=== PATIENT | female | born 1975 | race Caucasian/White ===

== ENCOUNTER 2023-06-25 08:18 | Outpatient (AMB) | payer OTHER, SELFPAY ==
--- NOTE | 2023-06-25 08:28 | MHC.PC.OV ---
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: No Allergies No Known Allergies Allergy (Verified 06/25/23 08:46) Medication List - Last Reconciled 06/25/23 by RODO Stoner buprenorphine-naloxone 2-0.5 mg (Suboxone) 1 film buccal DAILY gabapentin 300 mg PO TID melatonin mg PO BEDTIME prazosin 5 mg PO BEDTIME quetiapine 100 mg PO BID quetiapine 200 mg PO BEDTIME Tobacco use date assessed: 06/25/23 Dental Screening Dental Screen Date: 06/25/23 Did you have a dental visit in the last 12 months?: Yes Did you have a dental problem in the last 6 months where you did not have access to dental care?: No Was dental information given to patient?: Patient has dentist HPI 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 No PCP in the past. Medical history significant for PTSD, bipolar 2 disorder, anxiety, depression. Mental health conditions are followed by Psychiatry who prescribes mental health medications. Also history of substance use-on Suboxone followed by [facility] - history of heroin use, clean for 2 years, reports history of MRSA infection in her hips and spine, also was told-she has heart valve problem and she will need to have heart surgery in future. Patient reports shortness of breath on exertion for long time now, also reports intermittent left upper quadrant pain under ribs. Denies shortness of breath or chest pain in the office today. Patient also reports that she is on fluoxetine, does not remember the dose. She lives in [place] in a sober house. [facility] Medical History Hepatitis C Frostbite Surgical History Previous back surgery History of hip surgery Family History Mother HIV (human immunodeficiency virus infection) Father Alcoholic Social History Housing: House Housing Other:: sober house Patient Tobacco Use Status: Current everyday Tobacco user service: No Current occupational status: unemployed Cognitive needs: No Hearing needs: No Vision needs: No Questionnaire PHQ-9 Over the last 2 weeks, how often have you been bothered by any of the following problems? 1. Little interest or pleasure in doing things: several days 2. Feeling down, depressed, or hopeless: several days 3. Trouble falling or staying asleep, or sleeping too much: not at all 4. Feeling tired or having little energy: not at all 5. Poor appetite or overeating: not at all 6. Feeling bad about yourself - or that you are a failure or have let yourself or your family down: not at all 7. Trouble concentrating on things, such as reading the newspaper or watching television: not at all 8. Moving or speaking so slowly that other people could have noticed. Or the opposite - being so fidgety or restless that you have been moving around a lot more than usual: not at all 9. Thoughts that you would be better off or of hurting yourself in some way: not at all Total score: 2 Depression Screening Interpretation: Positive Depression Screening Follow-up: Existing condition Depression Screening Done: Yes 35657 - PHQ-9 Billing: Yes Source: Developed by Drs. Michele Tello, Dorina Razo, Floyd Soler and colleagues, with an educational sagar from [employer] AUDIT C Alcohol Use Questionnaire (AUDIT-C) 1. How often do you have a drink containing alcohol?: Never 3. How often do you have six or more drinks on one occasion?: Never Total Score: 0 Score Reviewed/Action Taken: No KELY-7 AMB Questionnaire KELY-7 Date KELY - 7 assessed: 06/25/23 Feeling nervous, anxious, or on edge: 1 = Several days Not being able to stop or control worryin = Not at all Worrying too much about different things: 0 = Not at all Trouble relaxin = Not at all Being so restless that it is hard to sit still: 0 = Not at all Becoming easily annoyed or irritable: 0 = Not at all Feeling afraid as if something awful might happen: 0 = Not at all Total KELY-7 score (0-4 normal; 5-9 mild; 10-14 moderate; 15-21 severe): 1 Source: Developed by Drs. Michele Tello, Dorina Raoz, Floyd Soler and colleagues, with an educational sagar from [employer] KELY-7 Assessment Billing KELY-7 Assessment Tool: KELY-7 Assessment 89225 Review of Systems Const Denies body aches, Denies chills, Denies fever(s) and Denies headache(s) ENT Denies dizziness, Denies otalgia, Denies headache(s), Denies nasal discharge, Denies sinus pain and Denies sore throat Card Denies chest pain, Denies edema, Denies lightheadedness, Denies dyspnea and Reports dyspnea on exertion Resp Denies cough, Denies dyspnea, Reports dyspnea on exertion and Denies wheezing GI Reports abdominal pain (Intermittent, under left ribcage), Denies constipation, Denies diarrhea, Denies nausea and Denies vomiting Denies dysuria Musc Denies myalgias Skin/Breast Denies rash Neuro Denies dizziness and Denies headache(s) Aller/Immun Denies wheezing Physical exam (Primary Care) Vital Signs: Last Vital Signs Pulse 89 06/25/23 08:29 BP 100/66 06/25/23 08:29 Pulse Ox 97 06/25/23 08:29 Oxygen Delivery Method Room Air 06/25/23 08:29 BMI result Body Mass Index 33.3 Tobacco/Smoking Status: Tobacco use Status Tobacco use date assessed 06/25/23 06/25/23 08:39 Patient Tobacco Use Status Current everyday Tobacco 06/25/23 08:39 PHQ-9: PHQ-9 Score PHQ-9: Total score 2 06/25/23 08:39 Depression Screening Interpretation: Positive Depression Screening Follow-up: Existing condition Const General: cooperative and no acute distress Orientation/consciousness: patient oriented x3 HENMT Head: Yes normocephalic and Yes atraumatic Ears: TM's normal bilaterally Face and sinus: Yes sinuses nontender Mouth: oropharynx normal and moist mucous membranes Throat: Yes posterior oropharynx normal Eyes General: appearance normal, both eyes and all related structures Pupils: Equal, round and reactive pupils present EOM: EOMs intact bilaterally Neck Neck: Yes normal visual inspection, Yes full ROM and Yes no lymphadenopathy Thyroid: Thyroid normal Resp Effort & Inspection: normal respiratory effort and able to speak in complete sentences Auscultation: clear to auscultation bilaterally, no crackles, no rales, no rhonchi and no wheezes Cardio Rate: regular rate Rhythm: regular rhythm Heart sounds: S1 normal heart sound present, S2 normal heart sound present and Murmur heart sound present systolic GI Palpation (GI): Soft to palpation, not firm, nontender, no guarding, not rigid and no hepatosplenomegaly Auscultation: normal bowel sounds General: No CVA tenderness Back/Spine/Pelvis Back: No CVA tenderness Skin General skin exam: no rashes or lesions noted Neuro General: patient oriented x3 Cranial nerves: Yes Equal, round and reactive pupils present Gait exam (Neuro): Normal gait present Extrem General: Yes full ROM and No edema Assessment and Plan Assessment & Plan (1) SOBOE (shortness of breath on exertion): Code(s): R06.02 - Shortness of breath Plan: Start albuterol inhaler p.r.n. Will obtain echocardiogram (2) Heart murmur: Code(s): R01.1 - Cardiac murmur, unspecified Plan: Will obtain echocardiogram (3) Depression: Code(s): F32.A - Depression, unspecified Qualifiers: Depression Type: other depression Qualified Code(s): F32.89 - Other specified depressive episodes Plan: Continue current medications as prescribed by Psychiatry Dr. Theodore (4) Anxiety: Code(s): F41.9 - Anxiety disorder, unspecified Plan: Same as above (5) History of substance use: Code(s): Z87.898 - Personal history of other specified conditions Plan: On Suboxone prescribed by Dr. Spivey from [facility] (6) Bipolar II disorder: Code(s): F31.81 - Bipolar II disorder Plan: Same as above (7) PTSD (post-traumatic stress disorder): Code(s): F43.10 - Post-traumatic stress disorder, unspecified Plan: Same as above (8) Encounter to establish care: Code(s): Z76.89 - Persons encountering health services in other specified circumstances (9) Smoker: Code(s): F17.200 - Nicotine dependence, unspecified, uncomplicated Plan: Patient smokes 5 cigarettes per day and vape Encouraged smoking cessation Plan Follow-up in 2 months for physical exam and labs Orders: Orders Comprehensive Victor. Panel Fast Today Z76.89 - Persons encountering health services in other specified circumstances Complete Blood Count Auto Diff Today Z76.89 - Persons encountering health services in other specified circumstances Vitamin D 25-OH Total Today Z76.89 - Persons encountering health services in other specified circumstances Vitamin B12 and Folate Today Z76.89 - Persons encountering health services in other specified circumstances TSH reflex Free T4 Today Z76.89 - Persons encountering health services in other specified circumstances Lipid Panel Today Z76.89 - Persons encountering health services in other specified circumstances B Type Natriuretic Peptide Today R01.1 - Cardiac murmur, unspecified CA echo transthoracic complete Today R01.1 - Cardiac murmur, unspecified Medications: New albuterol sulfate 90 mcg/actuation (Ventolin HFA) 2 puffs inhalation Q4-6H PRN 8.5 grams 0RF shortness of breath or wheezing R06.02 - Shortness of breath Coding Level of Care Code New Pt Level 4 (94309) Diagnoses SOBOE (shortness of breath on exertion) R06.02 Heart murmur R01.1 Other depression F32.89 Depression Type: other depression Anxiety F41.9 History of substance use Z87.898 Bipolar II disorder F31.81 PTSD (post-traumatic stress disorder) F43.10 Encounter to establish care Z76.89 Smoker F17.200 Additional Codes KELY-7 Assessment Billing - KELY-7 Assessment Tool: KELY-7 Assessment [id number] ([id number])
[2023-06-25 08:29] VITALS: BP 100/66; PULSE 89; O2SAT 97; BMI 33.3
== END 2023-06-25 09:06 | disposition home or self-care (01) ==
PROVIDERS: PCP Nurse Practitioner Family; Visit Provider Nurse Practitioner Family
DX: R06.02 Shortness of breath (principal); F31.81 Bipolar II disorder; R01.1 Cardiac murmur, unspecified; F41.9 Anxiety disorder, unspecified; Z87.898 Personal history of other specified conditions; F43.10 Post-traumatic stress disorder, unspecified; Z76.89 Persons encountering health services in other specified circumstances; F17.210 Nicotine dependence, cigarettes, uncomplicated
CPT/HCPCS: 99204

== ENCOUNTER → 2023-08-08 13:55 | Outpatient (REF) | payer OTHER, SELFPAY ==
--- NOTE | 2023-08-08 13:58 | CA_ITS ---
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 There is normal left ventricular wall thickness. The left ventricular systolic function is normal. The visually estimated ejection fraction is between 55-60%. - Severely increased right ventricular cavity size. There is borderline right ventricular systolic function. - The right atrium is severely dilated. - There is tear in the tricuspid valve leaflet from previous endocarditis. There is severe tricuspid valve regurgitation. - The inferior vena cava is dilated and collapses greater than 50% with inspiration. Hepatic vein flow indicates systolic flow reversal. Findings Left Ventricle Decreased left ventricular cavity size. There is normal left ventricular wall thickness. The left ventricular systolic function is normal. The visually estimated ejection fraction is between 55-60%. There is no evidence of regional wall motion abnormalities. Diastolic function is normal for age. Right Ventricle Severely increased right ventricular cavity size. There is borderline right ventricular systolic function. Atria The left atrium is normal in size. The right atrium is severely dilated. Aortic Valve There is a normal trileaflet aortic valve. There is no aortic valve stenosis. There is no aortic valve regurgitation. Mitral Valve The mitral valve appears normal. There is no mitral valve regurgitation. There is no mitral valve stenosis. Pulmonic Valve The pulmonic valve is likely normal. Tricuspid Valve There is tear in the tricuspid valve leaflet from previous endocarditis. There is severe tricuspid valve regurgitation. Mildly elevated right atrial pressure. There is no evidence of pulmonary hypertension. Great Vessels All visible segments of the aorta are normal in size. Venous The inferior vena cava is dilated and collapses greater than 50% with inspiration. Hepatic vein flow indicates systolic flow reversal. Pericardium/Pleural There is no evidence of pericardial effusion. Prior Study Comparison No prior study available for comparison. Measurements 2D Linear Measurements IVSd: 1.20 0.6-0.9/0.6-1.0 cm LVIDd: 3.59 3.9-5.3/4.2-5.9 cm LVIDd Index: 1.88 2.4-3.2/2.2-3.1 cm/m2 LVIDs: 2.34 2.0-3.6 cm LVPWd: 0.98 0.7-1.1 cm LA Diam: 3.50 2.7-3.8/3.0-4.0 cm LAIDs Index: 1.83 1.5-2.3 cm/m2 LV Mass: 151.25 67-162/88-224 g LV Mass Index: 79.19 43-95/49-115 g/m2 LVOT Diam: 2.20 3.0+(-)1.3 cm 2D Systolic Function EF 4C: 47.90 >55% EF 2C: 49.70 >55% EF BiP: 49.40 >55% Mitral Valve MV Pk E: 0.65 MV PK A: 0.84 MV Decel Time: 172.00 E/A: 0.80 E'Lateral: 8.81 E'Medial: 6.85 E/E' Med: 9.50 E/E' Lat: 7.40 PHT: 50.00 MVA PHT: 4.40 Decel [place]: 3.79 Aortic Valve AoV Pk Edwar: 1.09 AoV Mn Edwar: 0.72 AoV VTI: 0.19 AoV Pk Grad: 5.00 Aov Mn Grad: 2.00 PARISA Cont.VTI: 2.90 LVOT LVOT Pk Edwar: 0.80 LVOT Mn Edwar: 0.55 LVOT VTI: 0.14 LVOT Pk Grad: 3.00 LVOT Mn Grad: 1.00 LVOT Diam: 2.20 LVOT Area: 3.80 Diastolic Function MV Pk E: 0.65 MV Pk A: 0.84 E/A: 0.80 E'Medial: 6.85 E/E' Med: 9.50 E' Laterial: 8.81 E/E' Lat: 7.40 Right Ventricle TAPSE (mm): 28.60 TVS' Edwar: 16.30 Tricuspid Valve TR Pk Edwar: 2.62 TR Pk Grad: 27.00 RA Press: 8.00 RVSP: 35.00 Great Vessels Aorta Sinus of Valsalva: 2.88 2.0-3.[address] [place]: 2.19 1.7-3.4 cm Ao Asc: 2.60 2.1-3.4 cm Updated in Other Vendor System with Status of Final Jim Lang MD electronically signed on 08/08/2023 9:58:18 PM with status of Final
== END ==
LOC: HO.CARD 13:55
PROVIDERS: PCP Nurse Practitioner Family; Visit Provider Nurse Practitioner Family
DX: R01.1 Cardiac murmur, unspecified (principal)
CPT/HCPCS: 93306

== ENCOUNTER → 2023-08-08 13:58 | Outpatient (BNV) | payer OTHER, SELFPAY | PROVIDERS: PCP Nurse Practitioner Family; Visit Provider Internal Medicine Cardiovascular Disease | DX: I36.1 Nonrheumatic tricuspid (valve) insufficiency (principal) | CPT/HCPCS: 93306 ==

== ENCOUNTER 2023-08-11 14:41 | Outpatient (AMB) | payer OTHER, SELFPAY ==
[2023-08-11 14:43] VITALS: BP 126/58; PULSE 88; BMI 33.8
--- NOTE | 2023-08-11 14:43 | A.OFFVIS_ITS ---
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/ Severe tricusid regurg pt its having shortness of breath Supervisor Rework Required: No Accompanied by: Self / Same As Patient Allergies No Known Allergies Allergy (Verified 06/25/23 08:46) Medication List - Last Reconciled 08/11/23 by Jim Lang MD albuterol sulfate 90 mcg/actuation (Ventolin HFA) 2 puffs inhalation Q4-6H PRN buprenorphine-naloxone 2-0.5 mg (Suboxone) 1 film buccal DAILY cholecalciferol (vitamin D3) 50 mcg PO DAILY gabapentin 300 mg PO TID levothyroxine 25 mcg PO DAILY melatonin mg PO BEDTIME nicotine 1 patch topical DAILY prazosin 5 mg PO BEDTIME quetiapine 100 mg PO BID quetiapine 200 mg PO BEDTIME HPI HPI Comments History of Present Illness Details 48-year-old female who is here for 1st o ffice visit. She has background history of endocarditis and came for a routine echocardiogram through her primary care physician. I read her echo which showed severe RV and RA dilation and torrential tricuspid valve regurgitation. She was advised to come in for an urgent visit with us. She has background of IV drug use and endocarditis. She said she was sick 3-4 years ago and had multiple infections including osteomyelitis as well as pneumonia. She was told that the valve has been affected by the bacteremia and she may need valve replacement the future. She was last admitted at [facility] in 2020. She is saying that over the last 2 and half years she has been clean and not use any drugs. She has been noticing some fatigue and shortness of breath. Occasionally gets sharp central chest pains which appeared quite atypical. Echocardiogram reviewed and we discussed in detail about the findings including severe tricuspid valve regurgitation with severe RV dilation and mild dysfunction of the right ventricle. [facility] Medical History (Updated 08/11/23 @ 15:20 by Jim Lang MD) Severe tricuspid regurgitation Hepatitis C Frostbite Surgical History Previous back surgery History of hip surgery Family History Mother HIV (human immunodeficiency virus infection) Father Alcoholic Social History Housing: House Housing Other:: sober house Patient Tobacco Use Status: Current everyday Tobacco user service: No Current occupational status: unemployed Cognitive needs: No Hearing needs: No Vision needs: No Review of Systems Const Reports chills, Reports fatigue, Reports fever(s), Reports frequent falls, Reports weakness, Reports weight gain and Reports weight loss ENT Reports dizziness Card Reports chest pain, Reports leg edema, Reports lightheadedness, Reports palpitations, Reports dyspnea, Reports dyspnea on exertion and Reports orthopnea Resp Reports cough, Reports dyspnea and Reports dyspnea on exertion GI Reports bloating and Reports change in bowel habits Musc Reports muscle weakness, Reports numbness and Reports tingling Neuro Reports dizziness, Reports frequent falls, Reports numbness, Reports tingling and Reports weakness Endo Reports fatigue and Reports palpitations Physical Exam Vital Signs: Last Vital Signs Pulse 88 08/11/23 14:43 BP 126/58 L 08/11/23 14:43 BMI result Body Mass Index 33.8 GENERAL APPEARANCE: in no acute distress, pleasant. NECK: no carotid bruit, no jugular venous distention. SKIN: no suspicious lesions, warm and dry. HEART: Systolic murmur left sternal border, regular rate and rhythm. LUNGS: clear to auscultation bilaterally. ABDOMEN: soft, nontender. EXTREMITIES: no edema. PERIPHERAL PULSES: equal. NEUROLOGIC: No gross deficits, AAO X 3 Office Procedures EKG Details: Sinus rhythm 88 beats per minute, right axis deviation, anterolateral infarct, QTC 430 milliseconds. [id number], Complete Assessment & Plan Assessment & Plan (1) Severe tricuspid regurgitation: Code(s): I07.1 - Rheumatic tricuspid insufficiency (2) Right ventricular dysfunction: Code(s): I51.9 - Heart disease, unspecified Plan Pleasant 48-year-old female who is here for 1st office visit. 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 She was sick with multiple infections in different places including trying meds, vertebrae and lung. She had a prolonged course and eventually improved and was in drug rehab and stop using IV drugs. She has not used for the last 2 and half years. Her echocardiogram is showing severe tricuspid valve regurgitation and RV dilation. RV function is mildly reduced. Clearly her symptoms are linked with severe tricuspid valve regurgitation. To my eye, the valve appears damage and she will need valve replacement. I had a discussion with cardiothoracic surgeon Dr. Rincon at [facility] and he has kindly agreed to see her soon. I will upload the echocardiogram on Nely so he can review the echocardiography too. Depending on his assessment I will arrange a left and right heart catheteriza tion. We will see her back in few months. Thank you for allowing me to participate in the care of your patient. Please feel free to contact me if you have any questions. Orders: Referrals Cardiac Surgery Referral I07.1 - Rheumatic tricuspid insufficiency Coding Level of Care Code New Pt Level 4 (94907) Diagnoses Severe tricuspid regurgitation I07.1 Right ventricular dysfunction I51.9 CPT Codes EKG - CPT: 21977-[id number], Complete ([id number])
== END 2023-08-11 15:13 | disposition home or self-care (01) ==
PROVIDERS: PCP Nurse Practitioner Family; Visit Provider Internal Medicine Cardiovascular Disease
DX: I07.1 Rheumatic tricuspid insufficiency (principal); I51.9 Heart disease, unspecified
CPT/HCPCS: 93010; 99204

== ENCOUNTER → 2023-08-11 14:41 | Outpatient (BNVA) | payer OTHER, SELFPAY | PROVIDERS: PCP Nurse Practitioner Family; Visit Provider Internal Medicine Cardiovascular Disease | DX: I07.1 Rheumatic tricuspid insufficiency (principal); I51.9 Heart disease, unspecified | CPT/HCPCS: 93005; 99202 ==

== ENCOUNTER → 2023-09-09 23:59 | Outpatient (BNV) | payer OTHER, SELFPAY | PROVIDERS: PCP Nurse Practitioner Family; Visit Provider Internal Medicine Cardiovascular Disease | DX: I36.1 Nonrheumatic tricuspid (valve) insufficiency (principal) | CPT/HCPCS: 93460; 99152 ==

== ENCOUNTER 2023-10-16 13:43 | Outpatient (AMB) | payer OTHER, SELFPAY ==
[2023-10-16 13:45] VITALS: BP 104/70; PULSE 84; O2SAT 95; BMI 33.3
--- NOTE | 2023-10-16 13:45 | A.OFFPC_ITS ---
Vital Signs 10/16/23 13:45 Height 5 ft 4 in Weight 194 lb BMI 33.3 BP 104/70 Blood Pressure Location Lt brachial Position Sitting Pulse 84 Pulse Source Pulse Oximeter Pulse Oximetry (%) 95 Oxygen Delivery Method Room Air Intake Visit Reasons: Annual Exam Intake Note: Patient is here today for a physical. Communication Signals Intelligence Required: No Allergies No Known Allergies Allergy (Verified 10/16/23 13:46) Medication List - Last Reconciled 10/16/23 by Efern Malone MD albuterol sulfate 90 mcg/actuation (Ventolin HFA) 2 puffs inhalation Q4-6H PRN buprenorphine-naloxone 2-0.5 mg (Suboxone) 1 film buccal DAILY cholecalciferol (vitamin D3) 50 mcg PO DAILY gabapentin 300 mg PO TID levothyroxine 25 mcg PO DAILY melatonin mg PO BEDTIME nicotine 1 patch topical DAILY prazosin 5 mg PO BEDTIME quetiapine 100 mg PO BID quetiapine 200 mg PO BEDTIME Tobacco use date assessed: 10/16/23 Dental Screening Dental Screen Date: 10/16/23 Did you have a dental visit in the last 12 months?: No Did you have a dental problem in the last 6 months where you did not have access to dental care?: No HPI Annual Exam HPI Details 48-year-old obese female smoker with a h istory of bipolar disorder substance abuse with severe tricuspid regurgitation and right ventricular dysfunction 1st time being seen for physical exam. Review of the notes September 2023 multiple bouts of tricuspid valve endocarditis pneumonia treated hepatitis- C had a typical chest pain having dilated RV with decreased RV systolic function with severe tricuspid valve regurgitation with a tear in the leaflets so patient underwent 09/22/2023 tricuspid valve replacement with 33 epic valve [facility] permanent left ventricular epicardial pacing lead placement by Dr. Rincon status post tricuspid valve replacement on amiodarone for AFib prophylaxis aspirin 81 mg , Dr. Suazo [facility] Medical History (Updated 10/16/23 @ 14:58 by Efren Malone MD) Right ventricular dysfunction Smoker SOBOE (shortness of breath on exertion) Heart murmur Depression Severe tricuspid regurgitation Hepatitis C Frostbite Surgical History (Updated 10/16/23 @ 14:58 by Efren Malone MD) Previous back surgery History of hip surgery Family History (Updated 10/16/23 @ 14:59 by Efren Malone MD) Mother HIV (human immunodeficiency virus infection) Father Alcoholic Sister Leukemia Social History (Updated 10/16/23 @ 14:59 by Efren Malone MD) Housing: House Housing Other:: sober house Alcohol intake: never Patient Tobacco Use Status: Current everyday Tobacco user Years Smoked: 2 cigarettes a day service: No Current occupational status: unemployed Cognitive needs: No Hearing needs: No Vision needs: No Questionnaire PHQ-9 Over the last 2 weeks, how often have you been bothered by any of the following problems? 1. Little interest or pleasure in doing things: several days 2. Feeling down, depressed, or hopeless: several days 3. Trouble falling or staying asleep, or sleeping too much: not at all 4. Feeling tired or having little energy: not at all 5. Poor appetite or overeating: not at all 6. Feeling bad about yourself - or that you are a failure or have let yourself or your family down: not at all 7. Trouble concentrating on things, such as reading the newspaper or watching television: not at all 8. Moving or speaking so slowly that other people could have noticed. Or the opposite - being so fidgety or restless that you have been moving around a lot more than usual: not at all 9. Thoughts that you would be better off or of hurting yourself in some way: not at all Total score: 2 Depression Screening Interpretation: Positive Depression Screening Follow-up: Existing condition and In treatment Depression Screening Done: Yes Source: Developed by Drs. Michele Tello, Dorina Razo, Floyd Soler and colleagues, with an educational sagar from [employer]. Thrive Questionnaire Date Thrive assessed: 10/16/23 I am a: Patient What is your living situation today?: I have a steady place to live Within the past 12 months, did the food you bought not last and you didn't have the money to get more?: Never true Within the past 12 months, did you worry whether your food would run out before you got money to buy more?: Never true Do you have trouble paying for medicines?: No Do you have trouble getting transportation to medical appointments?: No Do you have trouble paying your heating and electricity bill?: No Do you have trouble taking care of your child, family member or friend?: No Do you have trouble with day-to-day activities such as bathing, preparing meals, shopping, managing finances, etc.?: No Are you currently unemployed and looking for a job?: No Are you interested in more education?: No Please select the resources that you would like help with: None THRIVE Score: 0 AUDIT C Alcohol Use Questionnaire (AUDIT-C) 1. How often do you have a drink containing alcohol?: Never 3. How often do you have six or more drinks on one occasion?: Never Total Score: 0 Score Reviewed/Action Taken: No KELY-7 AMB Questionnaire KELY-7 Date KELY - 7 assessed: 10/16/23 Feeling nervous, anxious, or on edge: 1 = Several days Not being able to stop or control worryin = Several days Worrying too much about different things: 0 = Not at all Trouble relaxin = Not at all Being so restless that it is hard to sit still: 0 = Not at all Becoming easily annoyed or irritable: 0 = Not at all Feeling afraid as if something awful might happen: 0 = Not at all Total KELY-7 score (0-4 normal; 5-9 mild; 10-14 moderate; 15-21 severe): 2 Source: Developed by Drs. Michele Tello, Dorina Razo, Floyd Soler and colleagues, with an educational sagar from [employer]. Physical exam (Primary Care) Vital Signs: Last Vital Signs Pulse 84 10/16/23 13:45 BP 104/70 10/16/23 13:45 Pulse Ox 95 10/16/23 13:45 Oxygen Delivery Method Room Air 10/16/23 13:45 BMI result Body Mass Index 33.3 Tobacco/Smoking Status: Tobacco use Status Tobacco use date assessed 10/16/23 10/16/23 13:47 Patient Tobacco Use Status Current everyday Tobacco 10/16/23 13:47 PHQ-9: PHQ-9 Score PHQ-9: Total score 2 10/16/23 14:21 Depression Screening Interpretation: Positive Depression Screening Follow-up: Existing condition and In treatment Thrive Assessment: Date of Thrive Assessment Date Thrive assessed 10/16/23 10/16/23 13:47 Const General: alert; No acute distress Eyes Conjunctivae: conjunctivae normal Resp Auscultation: clear to auscultation bilaterally Cardio Rate: regular rate Rhythm: regular rhythm GI Inspection: Yes normal to inspection Extrem General: Yes normal to inspection and No edema Assessment and Plan Assessment & Plan (1) Severe tricuspid regurgitation: Comment: Tricuspid valve surgery 09/22/2023 Code(s): I07.1 - Rheumatic tricuspid insufficiency Plan: Continue to follow up with Cardiology (2) History of endocarditis: Comment: X4 Code(s): Z86.79 - Personal history of other diseases of the circulatory system Plan: Status post tricuspid valve surgery (3) H/O tricuspid valve replacement: Comment: 09/22/2023 Code(s): Z95.2 - Presence of prosthetic heart valve Plan: Continue to follow-up with cardiology (4) Hypothyroidism: Code(s): E03.9 - Hypothyroidism, unspecified Plan: Will continue to follow-up with blood work (5) Bipolar II disorder: Comment: [facility] once a month Code(s): F31.81 - Bipolar II disorder Plan: Continue with medication presently (6) History of substance use: Code(s): Z87.898 - Personal history of other specified conditions (7) Tobacco abuse: Code(s): Z72.0 - Tobacco use (8) Encounter to establish care: Code(s): Z76.89 - Persons encountering health services in other specified circumstances Orders: Orders Comprehensive [place]. Panel Fast Today Z76.89 - Persons encountering health services in other specified circumstances Lipid Panel Today Z76.89 - Persons encountering health services in other specified circumstances TSH reflex Free T4 Today Z76.89 - Persons encountering health services in other specified circumstances Reticulocyte Count Today Z86.79 - Personal history of other diseases of the circulatory system Magnesium Today Z86.79 - Personal history of other diseases of the circulatory system B Type Natriuretic Peptide Today R01.1 - Cardiac murmur, unspecified Complete Blood Count Auto Diff Today Z76.89 - Persons encountering health services in other specified circumstances Vitamin B12 and Folate Today Z76.89 - Persons encountering health services in other specified circumstances Vitamin D 25-OH Total Today Z76.89 - Persons encountering health services in other specified circumstances IRON PROFILE Today Z86.79 - Personal history of other diseases of the circulatory system Ferritin Today Z86.79 - Personal history of other diseases of the circulatory system Coding Level of Care Code Est Pt Level 4 (04535) Diagnoses Severe tricuspid regurgitation I07.1 History of endocarditis Z86.79 H/O tricuspid valve replacement Z95.2 Hypothyroidism E03.9 Bipolar II disorder F31.81 History of substance use Z87.898 Tobacco abuse Z72.0 Encounter to establish care Z76.89
== END 2023-10-16 17:32 | disposition home or self-care (01) ==
PROVIDERS: PCP Nurse Practitioner Family; Visit Provider Internal Medicine
DX: E03.9 Hypothyroidism, unspecified (principal); F31.81 Bipolar II disorder; I07.1 Rheumatic tricuspid insufficiency; F17.210 Nicotine dependence, cigarettes, uncomplicated; Z86.79 Personal history of other diseases of the circulatory system; Z95.2 Presence of prosthetic heart valve; Z87.898 Personal history of other specified conditions; Z72.0 Tobacco use; Z76.89 Persons encountering health services in other specified circumstances
CPT/HCPCS: 99214

== ENCOUNTER 2023-10-28 13:33 | Outpatient (AMB) | payer OTHER, SELFPAY ==
[2023-10-28 14:13] VITALS: BP 114/75; PULSE 84; BMI 33.5
--- NOTE | 2023-10-28 14:13 | A.OFFVIS_ITS ---
Intake Vital Signs 10/28/23 14:13 Height 5 ft 4 in Weight 195 lb BMI 33.5 BP 114/75 Blood Pressure Location Lt brachial Position Sitting Pulse 84 Intake Visit Reasons: FU dc [facility] Intake Note: follow up after [facility] discharge Allergies No Known Allergies Allergy (Verified 10/16/23 13:46) Medication List - Last Reconciled 10/30/23 by Shannon Baumann NP albuterol sulfate 90 mcg/actuation (Ventolin HFA) 2 puffs inhalation Q4-6H PRN buprenorphine-naloxone 2-0.5 mg (Suboxone) 1 film buccal DAILY cholecalciferol (vitamin D3) 50 mcg PO DAILY furosemide 40 mg PO DAILY gabapentin 300 mg PO TID levothyroxine 25 mcg PO DAILY melatonin mg PO BEDTIME metoprolol succinate ER 50 mg PO DAILY nicotine 1 patch topical DAILY prazosin 5 mg PO BEDTIME quetiapine 100 mg PO BID quetiapine 200 mg PO BEDTIME [facility] Medical History (Updated 10/16/23 @ 14:58 by Efren Malone MD) Right ventricular dysfunction Smoker SOBOE (shortness of breath on exertion) Heart murmur Depression Severe tricuspid regurgitation Hepatitis C Frostbite Surgical History (Updated 10/30/23 @ 07:37 by Shannon Baumann NP) Previous back surgery History of hip surgery Family History (Updated 10/16/23 @ 14:59 by Efren Malone MD) Mother HIV (human immunodeficiency virus infection) Father Alcoholic Sister Leukemia Social History (Updated 10/16/23 @ 14:59 by Efren Malone MD) Housing: House Housing Other:: sober house Alcohol intake: never Patient Tobacco Use Status: Current everyday Tobacco user Years Smoked: 2 cigarettes a day service: No Current occupational status: unemployed Cognitive needs: No Hearing needs: No Vision needs: No Review of Systems Const Denies weakness ENT Denies dizziness Card Denies chest pain, Denies chest pain with activity, Denies syncope, Denies rapid heart rate, Denies pedal edema, Denies edema, Denies leg edema, Denies lightheadedness, Denies palpitations, Denies dyspnea, Denies dyspnea on exertion and Denies orthopnea Resp Denies cough, Denies dyspnea and Denies dyspnea on exertion GI Denies hematochezia and Denies change in stool character Musc Denies abnormal gait, Denies muscle cramps, Denies muscle weakness, Denies numbness, Denies radiating pain into limb and Denies tingling Neuro Denies abnormal gait, Denies dizziness, Denies syncope, Denies numbness, Denies tingling and Denies weakness Endo Denies palpitations Physical Exam Vital Signs: Last Vital Signs Pulse 84 10/28/23 14:13 BP 114/75 10/28/23 14:13 BMI result Body Mass Index 33.5 Assessment & Plan Assessment & Plan (1) H/O tricuspid valve replacement: Comment: 09/22/[address] [facility]. Code(s): Z95.2 - Presence of prosthetic heart valve Plan: Tricuspid valve replacement due to tear in leaflets with Dr. Suazo. No signs or symptoms of infection. Continue cardiac rehab. Antibiotic prophylaxis require per guidelines. Will discuss care further with Dr. Lang. (2) Tobacco abuse: Code(s): Z72.0 - Tobacco use Plan: She is down to 2 cigarettes per day. Encouraged to keep cutting back until full cessation. Coding Level of Care Code Est Pt Level 3 (51072) Diagnoses H/O tricuspid valve replacement Z95.2 Tobacco abuse Z72.0
== END 2023-10-28 14:34 | disposition home or self-care (01) ==
PROVIDERS: PCP Nurse Practitioner Family; Visit Provider Nurse Practitioner
DX: Z95.2 Presence of prosthetic heart valve (principal); Z72.0 Tobacco use
CPT/HCPCS: 99213

== ENCOUNTER → 2023-10-28 13:33 | Outpatient (BNVA) | payer OTHER, SELFPAY | PROVIDERS: PCP Nurse Practitioner Family; Visit Provider Nurse Practitioner | DX: Z95.2 Presence of prosthetic heart valve (principal); Z72.0 Tobacco use | CPT/HCPCS: 99212 ==

== ENCOUNTER → 2023-11-12 09:57 | Outpatient (REF) | payer OTHER, SELFPAY ==
--- NOTE | 2023-11-12 10:01 | HM_ITS ---
Conclusion: 1. Patient was monitored for total period of 2 days and 21 hours 2. Baseline was atrial fibrillation with average heart rate of 69 beats per minute with good rate control 3. No significant pauses noted 4. Occasional PVCs noted with total burden of 1.1% 5. Patient marked the counter 1 time without associated symptoms correlating with AFib with PVCs MTDD
== END ==
LOC: HO.CARD 09:57
PROVIDERS: PCP Nurse Practitioner Family; Visit Provider Internal Medicine Cardiovascular Disease
DX: I49.9 Cardiac arrhythmia, unspecified (principal)
CPT/HCPCS: 93242

== ENCOUNTER → 2023-11-12 10:01 | Outpatient (BNV) | payer OTHER, SELFPAY | PROVIDERS: PCP Nurse Practitioner Family; Visit Provider Internal Medicine Cardiovascular Disease | DX: I49.3 Ventricular premature depolarization (principal) | CPT/HCPCS: 93244 ==

== ENCOUNTER 2023-11-26 15:34 | Outpatient (AMB) | payer OTHER, SELFPAY ==
[2023-11-26 15:43] VITALS: BP 130/60; PULSE 89; BMI 33.6
--- NOTE | 2023-11-26 15:43 | A.OFFVIS_ITS ---
Intake Vital Signs 11/26/23 15:43 Height 5 ft 4 in Weight 195 lb 12.328 oz BMI 33.6 BP 130/60 Blood Pressure Location Lt brachial Position Sitting Pulse 89 Pulse Source Pulse Oximeter Intake Visit Reasons: 3 month follow up Intake Note: pt its here for a 3mth f/up/ pt states that she its doing fine. Top Ironer Required: No Accompanied by: Significant Other Allergies No Known Allergies Allergy (Verified 10/16/23 13:46) Medication List - Last Reconciled 11/26/23 by Jim Lang MD albuterol sulfate 90 mcg/actuation (Ventolin HFA) 2 puffs inhalation Q4-6H PRN aspirin 81 mg PO DAILY 90 days buprenorphine-naloxone 2-0.5 mg (Suboxone) 1 film buccal DAILY cholecalciferol (vitamin D3) 50 mcg PO DAILY furosemide 40 mg PO DAILY gabapentin 300 mg PO TID levothyroxine 25 mcg PO DAILY melatonin mg PO BEDTIME metoprolol succinate ER 50 mg PO DAILY nicotine 1 patch topical DAILY prazosin 5 mg PO BEDTIME quetiapine 100 mg PO BID quetiapine 200 mg PO BEDTIME HPI HPI Comments History of Present Illness Details 48-year-old female who is here for 1st o ffice visit. She has background history of endocarditis and came for a routine echocardiogram through her primary care physician. I read her echo which showed severe RV and RA dilation and torrential tricuspid valve regurgitation. She was advised to come in for an urgent visit with us. She has background of IV drug use and endocarditis. She said she was sick 3-4 years ago and had multiple infections including osteomyelitis as well as pneumonia. She was told that the valve has been affected by the bacteremia and she may need valve replacement the future. She was last admitted at [facility] in 2020. She is saying that over the last 2 and half years she has been clean and not use any drugs. She has been noticing some fatigue and shortness of breath. Occasionally gets sharp central chest pains which appeared quite atypical. Echocardiogram reviewed and we discussed in detail about the findings including severe tricuspid valve regurgitation with severe RV dilation and mild dysfunction of the right ventricle. 11/26/2023: she returns for follow-up. Loly castellanos underwent tricuspid valve repair by Dr. Suazo at [facility]. She has done significantly well since then. She has no shortness of breath during her symptoms of heart failure. She is doing cardiac rehabilitation and is progressing. [facility] Medical History (Updated 11/03/23 @ 16:16 by iJm Lang MD) Right ventricular dysfunction Smoker SOBOE (shortness of breath on exertion) Heart murmur Depression Severe tricuspid regurgitation Hepatitis C Frostbite Surgical History (Updated 11/26/23 @ 15:48 by Melany Newby MA) H/O heart surgery Previous back surgery History of hip surgery Family History (Updated 10/16/23 @ 14:59 by Efren Malone MD) Mother HIV (human immunodeficiency virus infection) Father Alcoholic Sister Leukemia Social History (Updated 10/16/23 @ 14:59 by Efren Malone MD) Housing: House Housing Other:: sober house Alcohol intake: never Patient Tobacco Use Status: Current everyday Tobacco user Years Smoked: 2 cigarettes a day service: No Current occupational status: unemployed Cognitive needs: No Hearing needs: No Vision needs: No Review of Systems Const Denies chills, Denies fatigue, Denies fever(s), Denies frequent falls, Denies weakness, Denies weight gain and Denies weight loss ENT Denies dizziness Card Denies chest pain, Denies leg edema, Denies lightheadedness, Denies palpitation s, Denies dyspnea and Denies dyspnea on exertion Resp Denies cough, Denies dyspnea and Denies dyspnea on exertion GI Denies hematochezia Musc Denies abnormal gait, Denies muscle weakness, Denies numbness, Denies radiating pain into limb and Denies tingling Neuro Denies abnormal gait, Denies dizziness, Denies frequent falls, Denies numbness, Denies tingling and Denies weakness Endo Denies fatigue and Denies palpitations Physical Exam Vital Signs: Last Vital Signs Pulse 89 11/26/23 15:43 BP 130/60 11/26/23 15:43 BMI result Body Mass Index 33.6 GENERAL APPEARANCE: in no acute distress, pleasant. NECK: no carotid bruit, no jugular venous distention. SKIN: no suspicious lesions, warm and dry. Healed midline sternotomy scar. HEART: Regular rate and rhythm. No murmur,gallop or rub ABDOMEN: soft, nontender. EXTREMITIES: no edema. PERIPHERAL PULSES: equal. NEUROLOGIC: No gross deficits, AAO X 3 Assessment & Plan Assessment & Plan (1) H/O tricuspid valve replacement: Comment: 09/22/[address] [facility]. Code(s): Z95.2 - Presence of prosthetic heart valve Plan Pleasant 48-year-old female who is here for follow-up. She was seen for RV dysfunction and severe tricuspid regurgitation secondary to endocarditis in the past. She was referred for cardiothoracic surgery and went tricuspid valve replacement. She has done significantly well with surgery and has been doing remarkably well at this point. I will check echocardiogram to assess the gradients across the tricuspid valve as baseline and assess the right ventricular function. I have advised her that she will need endocarditis prophylaxis every time she goes for dental workup. Thank you for allowing me to participate in the care of your patient. Please feel free to contact me if you have any questions. Orders: Orders CA echo transthoracic complete Today Z95.2 - Presence of prosthetic heart valve Coding Level of Care Code Est Pt Level 4 (95435) Diagnoses H/O tricuspid valve replacement Z95.2
== END 2023-11-26 16:03 | disposition home or self-care (01) ==
PROVIDERS: PCP Nurse Practitioner Family; Visit Provider Internal Medicine Cardiovascular Disease
DX: Z95.2 Presence of prosthetic heart valve (principal)
CPT/HCPCS: 99214

== ENCOUNTER → 2023-11-26 15:34 | Outpatient (BNVA) | payer OTHER, SELFPAY | PROVIDERS: PCP Nurse Practitioner Family; Visit Provider Internal Medicine Cardiovascular Disease | DX: Z95.2 Presence of prosthetic heart valve (principal) | CPT/HCPCS: 99212 ==

== ENCOUNTER 2023-12-03 10:25 | Outpatient (AMB) | payer OTHER, SELFPAY ==
--- NOTE | 2023-12-03 10:31 | AM.OFFVISNUR ---
Intake Intake Visit Reasons: ekg Allergies No Known Allergies Allergy (Verified 10/16/23 13:46) Nursing Note PT is here for Nurse Visit with EKG EKG left on Dr TRAORE deslashonda for review Office Procedures EKG [id number], Complete Coding CPT Codes EKG - CPT: 18500-[id number], Complete ([id number])
== END 2023-12-03 10:48 | disposition home or self-care (01) ==
PROVIDERS: PCP Nurse Practitioner Family; Visit Provider Internal Medicine Cardiovascular Disease
DX: R94.31 Abnormal electrocardiogram [ECG] [EKG] (principal)
CPT/HCPCS: 93010

== ENCOUNTER → 2023-12-03 10:25 | Outpatient (BNVA) | payer OTHER, SELFPAY | PROVIDERS: PCP Nurse Practitioner Family; Visit Provider Internal Medicine Cardiovascular Disease | DX: R94.31 Abnormal electrocardiogram [ECG] [EKG] (principal) | CPT/HCPCS: 93005 ==

== ENCOUNTER → 2023-12-05 12:58 | Outpatient (REF) | payer OTHER, SELFPAY ==
--- NOTE | 2023-12-05 13:02 | CA_ITS ---
Transthoracic Echocardiogram Patient (Last, First, Middle): Porter Munoz, Gender: Female Date of : 1975 Age: 48 Procedure Date: 12/05/2023 Procedure Type: Transthoracic Echocardiogram Location: OP Height: 162.56 cm Weight: 89.36 kg BSA: 1.94 m2 Heart Rate: 70 bpm BP: 105 / 70 mmHg Deposit Clerk: MARILYN Referring MD: Jim Lang MD Symptoms: Z95.2 - Presence of prosthetic heart valve Study Quality: Adequate ECG Rhythm: Sinus Conclusions: - Normal left ventricular size, thickness, systolic function, and wall motion. The visually estimated ejection fraction is between 55-60%. Diastolic function is normal for age. - Normal right ventricular cavity size. There is moderately decreased right ventricular systolic function. - A bioprosthetic tricuspid valve is present. The prosthetic tricuspid valve appears to be functioning normally. There is no tricuspid valve regurgitation. Normal right atrial pressure. There is no evidence of pulmonary hypertension. Findings Left Ventricle Normal left ventricular size, thickness, systolic function, and wall motion. The visually estimated ejection fraction is between 55-60%. Diastolic function is normal for age. Right Ventricle Normal right ventricular cavity size. There is moderately decreased right ventricular systolic function. Atria The left atrium is normal in size. The right atrium is mildly dilated. Aortic Valve Normal aortic valve structure and function. There is no aortic valve stenosis. There is no aortic valve regurgitation. Mitral Valve Normal mitral valve structure and function. There is no mitral valve regurgitation. There is no mitral valve stenosis. Pulmonic Valve The pulmonic valve is likely normal. Tricuspid Valve A bioprosthetic tricuspid valve is present. The prosthetic tricuspid valve appears to be functioning normally. There is no tricuspid valve regurgitation. Normal right atrial pressure. There is no evidence of pulmonary hypertension. Great Vessels All visible segments of the aorta are normal in size. The visualized portions of the pulmonary artery and branches are normal. Venous The inferior vena cava is normal in size and collapses greater than 50% with inspiration. Pericardium/Pleural There is no evidence of pericardial effusion. Prior Study Comparison Changes noted compared to prior study dated: 08/08/2023. Normal RV cavity size, RV function moderately reduced, RA size mildly increased, bioprosthetic tricuspid valve with MG 6 mm Hg. Measurements 2D Linear Measurements IVSd: 0.78 0.6-0.9/0.6-1.0 cm LVIDd: 4.64 3.9-5.3/4.2-5.9 cm LVIDd Index: 2.39 2.4-3.2/2.2-3.1 cm/m2 LVIDs: 2.58 2.0-3.6 cm LVPWd: 0.72 0.7-1.1 cm LA Diam: 4.00 2.7-3.8/3.0-4.0 cm LAIDs Index: 2.06 1.5-2.3 cm/m2 LV Mass: 136.14 67-162/88-224 g LV Mass Index: 70.17 43-95/49-115 g/m2 LVOT Diam: 1.90 3.0+(-)1.3 cm 2D Systolic Function EF 4C: 58.70 >55% EF 2C: 57.60 >55% EF BiP: 57.50 >55% Mitral Valve MV Pk E: 0.92 MV PK A: 0.75 MV Decel Time: 168.00 E/A: 1.20 E'Lateral: 9.57 E'Medial: 5.77 E/E' Med: 16.00 E/E' Lat: 9.60 PHT: 49.00 MVA PHT: 4.49 Decel [place]: 5.48 Aortic Valve AoV Pk Edwar: 1.03 AoV Mn Edwar: 0.76 AoV VTI: 0.24 AoV Pk Grad: 4.00 Aov Mn Grad: 3.00 PARISA Cont.VTI: 2.18 LVOT LVOT Pk Edwar: 0.77 LVOT Mn Edwar: 0.57 LVOT VTI: 0.18 LVOT Pk Grad: 2.00 LVOT Mn Grad: 2.00 LVOT Diam: 1.90 LVOT Area: 2.84 Diastolic Function MV Pk E: 0.92 MV Pk A: 0.75 E/A: 1.20 E'Medial: 5.77 E/E' Med: 16.00 E' Laterial: 9.57 E/E' Lat: 9.60 Right Ventricle TAPSE (mm): 7.82 TVS' Edwar: 6.42 Tricuspid Valve TV Pk Edwar: 1.54 TV Mn Edwar: 1.10 TV Pk Grad: 9.00 TV Mn Grad: 6.00 RA Press: 3.00 Great Vessels Aorta Sinus of Valsalva: 3.00 2.0-3.5 cm Ao Asc: 2.90 2.1-3.4 cm Pulmonary Valve PV Pk Edwar: 0.69 Peak PV Grad: 2.00 Updated in Other Vendor System with Status of Final Jim Lang MD electronically signed on 12/06/2023 10:27:03 PM with status of Final
== END ==
LOC: HO.CARD 12:58
PROVIDERS: PCP Nurse Practitioner Family; Visit Provider Internal Medicine Cardiovascular Disease
DX: Z95.2 Presence of prosthetic heart valve (principal)
CPT/HCPCS: 93306

== ENCOUNTER → 2023-12-05 13:02 | Outpatient (BNV) | payer OTHER, SELFPAY | PROVIDERS: PCP Nurse Practitioner Family; Visit Provider Internal Medicine Cardiovascular Disease | DX: Z95.3 Presence of xenogenic heart valve (principal) | CPT/HCPCS: 93306 ==